=== PATIENT | male | born 1980 ===

== ENCOUNTER 2017-03-15 16:41 | Emergency (ER) | payer OTHER ==
[2017-03-15 18:01] VITALS: BMI 27.4
[2017-03-15 18:03] VITALS: BP 126/70; RESP 18; TEMP 98.4; O2SAT 99
--- NOTE | 2017-03-15 18:47 | ED PDOC ---
HPI: Male Pain Time Seen by Provider: 03/15/17 17:01 Chief Complaint (Nursing): Male Genitourinary Chief Complaint (Provider): Hematuria History Per: Patient History/Exam Limitations: no limitations Onset/Duration Of Symptoms: Days (onset today) Current Symptoms Are (Timing): Still Present Additional Complaint(s): Arcadio is a 36 y/o male who presents to the ED complaining of suprapubic rash and discomfort, ongoing for 1 month. Noticed blood in his urine today, which prompted the ED visit. States he has sexual intercourse, only with his . Denies fever, chills, nausea, drainage, or other medical complaints at this time. PMD: Unknown Past Medical History Reviewed: Historical Data, Nursing Documentation, Vital Signs Vital Signs: Last Vital Signs Temp 98.4 F 03/15/17 17:00 Pulse 94 H 03/15/17 17:00 Resp 18 03/15/17 17:00 BP 126/70 03/15/17 17:00 Pulse Ox 99 03/15/17 17:00 - Medical History PMH: No Chronic Diseases - Surgical History Surgical History: No Surg Hx - Family History Family History: States: Unknown Family Hx - Social History Current smoker - smoking cessation education provided: No Alcohol: None Drugs: Denies - Home Medications Home Medications: Ambulatory Orders Medication Instructions Recorded No Known Home Med 03/15/17 - Allergies Allergies/Adverse Reactions: Allergies Allergy/AdvReac Type Severity Reaction Status Date / Time No Known Allergies Allergy Verified 03/15/17 17:56 Review of Systems ROS Statement: Except As Marked, All Systems Reviewed And Found Negative Constitutional: Negative for: Fever, Chills Gastrointestinal: Positive for: Abdominal Pain (Suprapubic discomfort) Genitourinary Male: Positive for: Hematuria, Rash, Penile Pain. Negative for: Penile Discharge Physical Exam - Reviewed Nursing Documentation Reviewed: Yes Vital Signs Reviewed: Yes - Physical Exam Appears: Positive for: Well, Non-toxic, No Acute Distress Head Exam: Positive for: ATRAUMATIC, NORMAL INSPECTION, NORMOCEPHALIC Skin: Positive for: Warm, Dry, Rash (to the suprapubic area, ) Eye Exam: Positive for: EOMI, Normal appearance, PERRL Neck: Positive for: Normal, Painless ROM Male Genital Exam: Positive for: lesions (Genital warts in the suprapubic region ) Neurologic/Psych: Positive for: Alert, Oriented - ECG O2 Sat by Pulse Oximetry: 99 (RA) Pulse Ox Interpretation: Normal Medical Decision Making Medical Decision Making: Time: 18:01 Initial Plan: --ED urine dipstick --Labs: chlamydia and urine culture pending --Labs sent for evaluation. Time: 18:45 Clinical Impression: Genital warts, Hematuria Upon provider evaluation patient is medically stable, and requires no further treatment in the ED at this time. Patient will be discharged home. Counseling was provided and all questions were answered regarding diagnosis and need for follow up in the Clinic with repeat labs. There is agreement to discharge plan. Return if symptoms persist or worsen. Scribe Attestation: Documented by Maribeth Deal, acting as a scribe for Claudia Powers PA-C Provider Scribe Attestation: All medical record entries made by the Scribe were at my direction and personally dictated by me. I have reviewed the chart and agree that the record accurately reflects my personal performance of the history, physical exam, medical decision making, and the department course for this patient. I have also personally directed, reviewed, and agree with the discharge instructions and disposition. Disposition - Clinical Impression Clinical Impression: Genital warts, Hematuria - Patient ED Disposition Is Patient to be Admitted: No Counseled Patient/Family Regarding: Studies Performed, Diagnosis, Need For Followup - Disposition Disposition: Routine/Home Disposition Time: 18:45 Condition: STABLE Additional Instructions: Urine sent to labs for evaluation. Please f.u in the clinic. Instructions: Genital Warts (ED) Forms: [employer] (Greenlandic) Print Language: ESTONIAN
[2017-03-15 18:49] VITALS: PULSE 81
== END 2017-03-15 18:47 | disposition home or self-care (01) ==
LOC: H.ER 16:41
DX: A63.0 Anogenital (venereal) warts (principal)